=== PATIENT | male | born 1950 | race Caucasian/White ===

== ENCOUNTER 2019-04-25 11:13 | Emergency (ER) | payer MEDICARE, BC ==
[2019-04-25] MEDS ORDERED: Ibuprofen TAB* 600 MG PO ONE (12:36)
--- NOTE | 2019-04-25 12:36 | UC ---
Lower Extremity/Ankle HPI - HPI Summary HPI Summary: 68 yo male presents with RIGHT hip pain. He tells me that he was playing pickleball this morning and dove to hit the ball and landed on his right hip. Had immediate pain. Since that time has been unable to bear weight on right leg and has pain with movement. Denies numbness tingling. Took an ibuprofen prior to arrival. - History of Current Complaint Chief Complaint: UCLowerExtremity Stated Complaint: HIP INJURY Time Seen by Provider: 04/25/19 12:36 Hx Obtained From: Patient Onset/Duration: Sudden Onset Severity Initially: Severe Severity Currently: Severe Pain Intensity: 9 Pain Scale Used: 0-10 Numeric - Allergies/Home Medications Allergies/Adverse Reactions: Allergies Allergy/AdvReac Type Severity Reaction Status Date / Time No Known Allergies Allergy Verified 04/25/19 12:28 Home Medications: Home Medications Ibuprofen 400 mg PO ONCE PRN 04/25/19 [History Confirmed 04/25/19] PMH/Surg Hx/FS Hx/Imm Hx - Additional Past Medical History Additional PMH: None - Surgical History Surgical History: Yes Surgery Procedure, Year, and Place: prostatectomy. hernia repair - Family History Known Family History: Positive: Hypertension - Social History Lives: With Family Alcohol Use: None Substance Use Type: None Smoking Status (MU): Light Every Day Tobacco Smoker Amount Used/How Often: 5-10cig/day Household Exposure Type: Cigarettes Review of Systems All Other Systems Reviewed And Are Negative: No Constitutional: Positive: Negative Skin: Positive: Negative Respiratory: Positive: Negative Cardiovascular: Positive: Negative Gastrointestinal: Positive: Negative Genitourinary: Positive: Negative Neurovascular: Positive: Negative Musculoskeletal: Positive: Other: - Right hip pain Neurological: Positive: Negative Psychological: Positive: Negative Physical Exam - Summary Physical Exam Summary: GENERAL: NAD. WDWN. No pain distress seated in wheelchair SKIN: No rashes, sores, lesions, or open wounds. NECK: Supple. FROM. Nontender. No lymphadenopathy. CHEST: CTAB. No r/r/w. No accessory muscle use. Breathing comfortably and in no distress. CV: RRR. Pulses intact. Cap refill <2seconds MSK: RIGHT HIP: TTP over hip joint. Pain with any movement of right hip joint. NTTP right knee - flexes and extends. NEURO: Alert. Sensations intact B/L LEs L3-S1. Reflexes intact PSYCH: Age appropriate behavior. Triage Information Reviewed: Yes Vital Signs: Initial Vital Signs Temp 98.3 F 04/25/19 12:24 Pulse 85 04/25/19 12:24 Resp 18 04/25/19 12:24 BP 142/90 04/25/19 12:24 Pulse Ox 93 04/25/19 12:24 Vital Signs Reviewed: Yes Diagnostics - Radiology Hip XR Summary of Radiographic Findings: IMPRESSION: Suspected nondisplaced fracture of the right femoral neck. Lower Extremity Course/Dx - Course Course Of Treatment: XR as above. Discussed with Dr. Parker of Orthopedics and he recommends pt be transferred to the ED and he will see pt there. Pt was given norco for his discomfort in the clinic, but otherwise was kept NPO. CT obtained for Orthopedic eval. EMS called and pt left in stable condition via [facility]. Report called to Dr. Briceño in the ED. - Differential Dx/Diagnosis Provider Diagnosis: Fracture of femoral neck, right Discharge ED - Sign-Out/Discharge Documenting (check all that apply): Patient Departure All imaging exams completed and their final reports reviewed: Yes - Discharge Plan Condition: Stable Disposition: TRANS HIGHER LVL OF CARE FAC Referrals: No Primary Care Phys,NOPCP [Primary Care Provider] - - Billing Disposition and Condition Condition: STABLE Disposition: Trans Higher Lvl of Care Fac
[2019-04-25] MEDS ORDERED: HYDROcodone/ACETAMIN 5-325 MG* 1 TAB PO ONE (13:22)
[2019-04-25 13:54] VITALS: BP 113/68
== END 2019-04-25 14:15 | disposition short-term general hospital (02) ==
LOC: UCEAST 11:13
DX: S72.001A Fracture of unspecified part of neck of right femur, initial encounter for closed fracture (principal); F17.210 Nicotine dependence, cigarettes, uncomplicated; W18.30XA Fall on same level, unspecified, initial encounter; Y93.89 Activity, other specified; Y92.9 Unspecified place or not applicable
CPT/HCPCS: 72192; 99203; A9270-GY; G0463

== ENCOUNTER 2019-04-25 14:30 | Inpatient (IN) | payer MEDICARE, BC ==
[2019-04-25] MEDS ORDERED: Morphine 4 MG/ML VIAL (1 ml) 4 MG/ML VIAL IV ONE (14:45)
[2019-04-25 15:17] LABS: Hematocrit 49 % (42-52); Hemoglobin 16.5 g/dL (14.0-18.0); Mean Corpuscular HGB Conc 34 g/dL (31-36); Mean Corpuscular Hemoglobin 30 pg (27-31); Mean Corpuscular Volume 88 fL (80-94); Mean Platelet Volume 8.2 fL (7.4-10.4); Platelet Count 507 10^3/uL (150-450); Red Blood Count 5.55 10^6 /uL (4.18-5.48); Red Cell Distribution Width 16 % (10-15); White Blood Count 24.5 10^3/uL (3.5-10.8)
[2019-04-25 15:19] LABS: ABS Basophils 0.1 10^3/ul (0-0.2); ABS Eosinophils 0.3 10^3/ul (0-0.6); ABS Lymphocytes 0.7 10^3/ul (1.0-4.8); ABS Monocytes 1.3 10^3/ul (0-0.8); ABS Neutrophils 22.1 10^3/ul (1.5-7.7); Eosinophil % 1.2 %; Lymphocyte % 2.9 %; Nucleated Red Blood Cells % 0.1
[2019-04-25 15:24] LABS: INR 1.14 (0.82-1.09)
[2019-04-25 15:42] LABS: Albumin/Globulin Ratio 1.4 (1-3); Calcium 9.1 mg/dL (8.6-10.3); EGFR African American 71.5 (>60); EGFR Non-African American 59.1 (>60); Globulin 2.9 g/dL (2-4); Potassium 4.7 mmol/L (3.5-5.0); Total Bilirubin 0.5 mg/dL (0.2-1.0); Total Protein 6.9 g/dL (6.4-8.9)
--- NOTE | 2019-04-25 15:43 | HP ---
H&P (Free Text) History and Physical: Ortho H&P Attending Provider: Amadeo Keita Date of Consultation: 04/25/19 Date of Admission: 04/25/19 CC: Right femoral neck fracture History: Patient is a 60 year old male with no reported past medical history who present to the emergency room after falling onto his right hip while playing pickle ball this morning. He reports a mechanical fall without any associated chest pain, shortness of breath, dizziness. Pain of the right hip is severe and worsened with movement, better with rest. It is nonradiating. No other complaints of pain and did not strike his head or lose consciousness with the fall. After falling he was able to get to his feet but unable to bear weight. Last meal was at 1200 today, has had sips of water since. No known history of heart attack, stroke, DVT, PE, blood transfusion, HIV or hepatitis. No history of adverse effects with anesthesia. Allergies: NKDA Surgical History: prostatectomy, right partial 1st finger amputation, left wrist surgery Past medical history: none reported Family history: No family history of adverse effects with anesthesia, heart attack, stroke or blood clot. Social: Lives in [place]. 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 In [place] visiting his significant other. Smokes 5-10 cigarettes per day. Does not use alcohol or drugs. Walks without assistive device. Home Meds: No prescriptions, ibuprofen PRN Review of Systems: General: Negative for Fever, Chills, recent illness HEENT: Negative for acute change in vision, headache, head trauma. Cardio: No irregular heartbeats, Chest Pain or history of [place] Resp: No Shortness of Breath or Cough. Abd: no Abdominal Pain, Vomiting, Diarrhea, Nausea : no dysuria MSK: + Right hip pain. No pain of other joints and no pain of extremities aside from right hip Neuro: Sensation intact throughout all extremities without numbness or parasthesias Heme: no history of blood clot, easy bleeding or easy bruising Skin: No rash or lesions. Physical Exam: Vitals: Vital Signs Temp 98.7 F 04/25/19 14:33 Pulse 85 04/25/19 15:00 Resp 18 04/25/19 15:26 BP 144/95 04/25/19 14:33 Pulse Ox 91 04/25/19 15:00 Intake & Output 04/24/19 04/25/19 04/25/19 18:59 06:59 18:59 Weight 180 lb General: Well appearing, NAD, alert and oriented to person, place and time HEENT: NCAT. EOMi, moist mucus membranes Cardio: S1S2 RRR Resp: CTA BL. no wheezes, rales or rhonchi ABD: bowel sounds normoactive in all 4 quadrants. Nontender to palpation, no guarding or rigidity. MSK Upper Extremities: Skin envelope intact, no obvious deformity, nontender to palpation. Active flexion and extension of digits, wrists, elbows without associated pain. Shoulders with nonpainful active forward flexion and abduction. MSK Left Lower Extremity: Skin envelope intact, no obvious eddie deformity, nontender to palpation. Active nonpainful flexion and extension of digits, ankle , knee and hip. Negative log roll at the hip. MSK Right Lower Extremity: Skin envelope intact. Tender to palpation over the right hip only, no tenderness of knee, lower leg, ankle, foot or digits. Able to flex and extend toes and ankle without pain. ROM of hip and knee produces hip pain. Neuro: Sensation intact to light touch throughout bilateral upper and lower extremities Vascular: Radial pulse 2+ bilaterally, DP pulse 2+ bilaterally. Capillary refill less than two seconds distally bilateral upper and lower extremities Psych: Appropriate affect. Skin: No rash or lesions. No open fractures. Diagnostic Studies: PELVIS CT IMPRESSION: #. Mildly impacted subcapital RIGHT femoral neck fracture with mild apex anterior angulation. No predisposing underlying pathologic bone lesion evident at the fracture site. Associated moderate hemarthrosis. Laboratory Last Values WBC 24.5 10^3/uL (3.5-10.8) H 04/25/19 15:01 RBC 5.55 10^6 /uL (4.18-5.48) H 04/25/19 15:01 Hgb 16.5 g/dL (14.0-18.0) 04/25/19 15:01 Hct 49 % (42-52) 04/25/19 15:01 MCV 88 fL (80-94) 04/25/19 15:01 MCH 30 pg (27-31) 04/25/19 15:01 MCHC 34 g/dL (31-36) 04/25/19 15:01 RDW 16 % (10-15) H 04/25/19 15:01 Plt Count 507 10^3/uL (150-450) H 04/25/19 15:01 MPV 8.2 fL (7.4-10.4) 04/25/19 15:01 Neut % (Auto) 90.3 % 04/25/19 15:01 Lymph % (Auto) 2.9 % 04/25/19 15:01 [place] % (Auto) 5.1 % 04/25/19 15:01 Eos % (Auto) 1.2 % 04/25/19 15:01 Baso % (Auto) 0.5 % 04/25/19 15:01 Absolute Neuts (auto) 22.1 10^3/ul (1.5-7.7) H 04/25/19 15:01 Absolute Lymphs (auto) 0.7 10^3/ul (1.0-4.8) L 04/25/19 15:01 Absolute Monos (auto) 1.3 10^3/ul (0-0.8) H 04/25/19 15:01 Absolute Eos (auto) 0.3 10^3/ul (0-0.6) 04/25/19 15:01 Absolute Basos (auto) 0.1 10^3/ul (0-0.2) 04/25/19 15:01 Absolute Nucleated RBC 0.0 10^3/ul 04/25/19 15:01 Nucleated RBC % 0.1 04/25/19 15:01 INR (Anticoag Therapy) 1.14 (0.82-1.09) H 04/25/19 15:01 Sodium 137 mmol/L (135-145) 04/25/19 15:01 Potassium 4.7 mmol/L (3.5-5.0) 04/25/19 15:01 Chloride 110 mmol/L (101-111) 04/25/19 15:01 Carbon Dioxide 21 mmol/L (22-32) L 04/25/19 15:01 Anion Gap 6 mmol/L (2-11) 04/25/19 15:01 BUN 28 mg/dL (6-24) H 04/25/19 15:01 Creatinine 1.22 mg/dL (0.67-1.17) H 04/25/19 15:01 Est GFR ( Amer) 71.5 (>60) 04/25/19 15:01 Est GFR (Non-Af Amer) 59.1 (>60) 04/25/19 15:01 BUN/Creatinine Ratio 23.0 (8-20) H 04/25/19 15:01 Glucose 110 mg/dL (70-100) H 04/25/19 15:01 Calcium 9.1 mg/dL (8.6-10.3) 04/25/19 15:01 Total Bilirubin 0.50 mg/dL (0.2-1.0) 04/25/19 15:01 AST 20 U/L (13-39) 04/25/19 15:01 ALT 19 U/L (7-52) 04/25/19 15:01 Alkaline Phosphatase 69 U/L (34-104) 04/25/19 15:01 Total Protein 6.9 g/dL (6.4-8.9) 04/25/19 15:01 Albumin 4.0 g/dL (3.2-5.2) 04/25/19 15: Globulin 2.9 g/dL (2-4) 04/25/19 15:01 Albumin/Globulin Ratio 1.4 (1-3) 04/25/19 15:01 Assessment: Right femoral neck fracture Plan: Patient agrees to surgical fixation of R femoral neck fracture. Discussed with Dr Keita, total hip vs anastacia to be considered. NWB RLE, bedrest. Hospitalist consult for preop clearance. WBC elevated, possible stress reaction though need to r/o other causes- UA, CXR, EKG ordered. Patient can have a normal diet today. Heparin and SCDs for DVT prophy, heparin will be held at midnight. Should remain NPO at midnight. Needs a CBC, BMP, type and screen, INR prior to surgery.
[2019-04-25] MEDS ORDERED: Magnesium Hydroxide LIQ* 30 ML UDC PO PRN (16:00)
[2019-04-25] MEDS ORDERED: Ondansetron ODT TAB* 4 MG PO PRN (16:00)
[2019-04-25] MEDS ORDERED: diPHENhydraMINE PO* 25 MG PO PRN (16:00)
[2019-04-25] MEDS ORDERED: diPHENhydraMINE IV* 50 MG/ML 1 ml VIAL (BENADRYL) IV PRN (16:00)
[2019-04-25] MEDS ORDERED: Cyclobenzaprine TAB* 10 MG PO PRN (16:00)
[2019-04-25] MEDS ORDERED: Ondansetron INJ* 2 MG/ML VIAL IV PRN (16:00)
[2019-04-25] MEDS ORDERED: Morphine INJ* 2 MG/ML 1 ML SYRINGE (TWO MG - NEW SYRINGE VERSION) IV PRN (16:00)
[2019-04-25] MEDS ORDERED: traMADol TAB* 50 MG PO PRN (16:00)
[2019-04-25] MEDS ORDERED: Nicotine PATCH 7 MG/24 HR* PATCH TRANSDERM PRN (16:07)
[2019-04-25 16:18] LABS: C Reactive Protein 7.1 mg/L (<8.01)
[2019-04-25 16:26] LABS: Activated Partial Thrombo Time 39.3 seconds (26.0-38.0)
--- NOTE | 2019-04-25 16:26 | ED ---
Lower Extremity - HPI Summary HPI Summary: This patient is a 68-year-old male who presents to the ED after a fall with right-sided hip pain. Patient states he was playing pickleball at the [facility] when he tripped and fell onto the L hip. Pt went to and xrays were obtainee which is positive for a mildly impacted subcapital right femoral neck fracture with mild apex anterior angulation. Prior to arrival to the ED, the provider at urgent care was able to contact orthopedics, Dr. Aranda to make aware of patient. Patient was given 2 hydrocodone prior to arrival. On arrival into the ED, patient continues to complain of 6/10 pain. Denies any other injuries, denies hitting his head or the use of anticoagulation medications. - History of Current Complaint Chief Complaint: EDExtremityLower Stated Complaint: LEFT HIP FX FROM CC Time Seen by Provider: 04/25/19 14:31 Hx Obtained From: Patient Onset of Pain: Hours Onset/Duration: Days Severity Initially: Moderate Severity Currently: Moderate Pain Intensity: 7 Pain Scale Used: 0-10 Numeric Timing: Constant Location: Is Discrete @ - right hip pain Character Of Pain: Aching Associated Signs And Symptoms: Negative: Swelling, Redness, Bruising Aggravating Factor(s): Standing, Ambulation Alleviating Factor(s): Rest Able to Bear Weight: No - Risk Factors Gout Risk Factors: Negative DVT Risk Factors: Negative Septic Arthritis Risk Factor: Negative - Allergies/Home Medications Allergies/Adverse Reactions: Allergies Allergy/AdvReac Type Severity Reaction Status Date / Time No Known Allergies Allergy Verified 04/25/19 12:28 PMH/Surg Hx/FS Hx/Imm Hx Previously Healthy: Yes - Cancer History Cancer Type, Location and Year: prostate ca - Surgical History Surgery Procedure, Year, and Place: prostatectomy. hernia repair - Immunization History Hx Pertussis Vaccination: No Immunizations Up to Date: Yes Infectious Disease History: No Infectious Disease History: Denies: Traveled Outside the [place] in Last 30 Days - Family History Known Family History: Positive: Hypertension - Social History Occupation: Employed Full-time Lives: With Family Alcohol Use: None Hx Substance Use: No Substance Use Type: Reports: None Hx Tobacco Use: Yes Smoking Status (MU): Light Every Day Tobacco Smoker Amount Used/How Often: 5-10cig/day Review of Systems Negative: Fever, Chills, Fatigue, Skin Diaphoresis Negative: Palpitations, Chest Pain Negative: Shortness Of Breath, Cough Genitourinary: Negative Positive: no symptoms reported, see HPI Positive: Arthralgia - right hip pain Skin: Negative Neurological: Negative All Other Systems Reviewed And Are Negative: Yes Physical Exam Triage Information Reviewed: Yes Vital Signs On Initial Exam: Initial Vitals Temp Pulse Resp BP Pulse Ox 98.7 F 81 19 144/95 93 04/25/19 14:33 04/25/19 14:33 04/25/19 14:33 04/25/19 14:33 04/25/19 14:33 Vital Signs Reviewed: Yes Appearance: Positive: Well-Appearing, Well-Nourished Skin: Positive: Warm, Skin Color Reflects Adequate Perfusion Head/Face: Positive: Normal Head/Face Inspection Eyes: Positive: EOMI, EL, Conjunctiva Clear Neck: Positive: Supple, No Lymphadenopathy Respiratory/Lung Sounds: Positive: Clear to Auscultation, Breath Sounds Present Cardiovascular: Positive: RRR, Pulses are Symmetrical in both Upper and Lower Extremities Musculoskeletal: Positive: Pain @ - right hip pain - unable to fully extend leg Neurological: Positive: Speech Normal Psychiatric: Positive: Affect/Mood Appropriate Procedures - Sedation Patient Received Moderate/Deep Sedation with Procedure: No Diagnostics - Vital Signs Vital Signs Temp Pulse Resp BP Pulse Ox 04/25/19 16:05 86 130/82 90 04/25/19 16:00 82 91 04/25/19 15:35 82 126/81 90 04/25/19 15:26 18 04/25/19 15:00 85 91 04/25/19 14:40 72 93 04/25/19 14:33 98.7 F 81 19 144/95 93 - Laboratory Lab Results: Lab Results 04/25/19 04/25/19 04/25/19 Range/Units 15:01 15:01 15:01 WBC 24.5 H (3.5-10.8) 10^3/uL RBC 5.55 H (4.18-5.48) 10^6 /uL Hgb 16.5 (14.0-18.0) g/dL Hct 49 (42-52) % MCV 88 (80-94) fL MCH 30 (27-31) pg MCHC 34 (31-36) g/dL RDW 16 H (10-15) % Plt Count 507 H (150-450) 10^3/uL MPV 8.2 (7.4-10.4) fL Neut % (Auto) 90.3 % Lymph % (Auto) 2.9 % [place] % (Auto) 5.1 % Eos % (Auto) 1.2 % Baso % (Auto) 0.5 % Absolute Neuts (auto) 22.1 H (1.5-7.7) 10^3/ul Absolute Lymphs (auto) 0.7 L (1.0-4.8) 10^3/ul Absolute Monos (auto) 1.3 H (0-0.8) 10^3/ul Absolute Eos (auto) 0.3 (0-0.6) 10^3/ul Absolute Basos (auto) 0.1 (0-0.2) 10^3/ul Absolute Nucleated RBC 0.0 10^3/ul Nucleated RBC % 0.1 INR (Anticoag Therapy) 1.14 H (0.82-1.09) APTT Pending Sodium 137 (135-145) mmol/L Potassium 4.7 (3.5-5.0) mmol/L Chloride 110 (101-111) mmol/L Carbon Dioxide 21 L (22-32) mmol/L Anion Gap 6 (2-11) mmol/L BUN 28 H (6-24) mg/dL Creatinine 1.22 H (0.67-1.17) mg/dL Est GFR ( Amer) 71.5 (>60) Est GFR (Non-Af Amer) 59.1 (>60) BUN/Creatinine Ratio 23.0 H (8-20) Glucose 110 H (70-100) mg/dL Calcium 9.1 (8.6-10.3) mg/dL Total Bilirubin 0.50 (0.2-1.0) mg/dL AST 20 (13-39) U/L ALT 19 (7-52) U/L Alkaline Phosphatase 69 (34-104) U/L C-Reactive Protein 7.10 (<8.01) mg/L Total Protein 6.9 (6.4-8.9) g/dL Albumin 4.0 (3.2-5.2) g/dL Globulin 2.9 (2-4) g/dL Albumin/Globulin Ratio 1.4 (1-3) Result Diagrams: 04/25/19 15:01 04/25/19 15:01 Lab Statement: Any lab studies that have been ordered have been reviewed, and results considered in the medical decision making process. Lower Extremity Course/Dx - Course Course Of Treatment: This patient is an otherwise healthy 68-year-old male presenting to the ED with right hip pain. Mild impacted subcapital right femoral neck fracture. Discussed case with Dr. Aranda who will admit to service. BETHANY Castellano to see patient in the ED. Patient was given morphine on arrival into the ED. Patient appears well, VS stable. - Diagnoses Provider Diagnoses: Subcapital fracture of right hip - Physician Notifications Discussed Care Of Patient With: Amadeo Keita Instructed by Provider To: Admit As Inpatient Discharge ED - Sign-Out/Discharge Documenting (check all that apply): Patient Departure All imaging exams completed and their final reports reviewed: Yes - Discharge Plan Condition: Good Disposition: ADMITTED TO [facility] - Billing Disposition and Condition Condition: GOOD Disposition: Admitted to [facility] - Attestation Statements Provider Attestation: I was available for consult. This patient was seen by the JUDY. The patient was not presented to, seen by, or examined by me. -Tony
[2019-04-25] MEDS: Heparin VIAL(*) 5000 UNITS/ML VIAL (FIVE THOUSAND) SUBCUT SCH ×2 (17:33→21:46)
[2019-04-25] MEDS: oxyCODONE TAB* 5 MG TAB PO PRN ×2 (17:34→21:55)
[2019-04-25] MEDS: NS 0.9% 1000 ML** 1,000 ML IV SCH (17:34)
--- NOTE | 2019-04-25 19:30 | CONS ---
CC: Dr. Chapa * CONSULTATION REPORT: DATE OF ADMISSION: 04/25/19 DATE OF CONSULT: 04/25/19 PRIMARY CARE PROVIDER: None. CONSULT REQUESTING PHYSICIAN: Dr. Chapa from orthopedic surgery. REASON FOR CONSULT: Leukocytosis in a patient with right hip fracture. CHIEF COMPLAINT: Right hip pain. HISTORY OF PRESENT ILLNESS: Mike Lei is a 68-year-old male with history of prostate cancer, status post radical prostatectomy over 15 years ago. He has had no medical problems and takes no medications. He was playing ball at the [employer] and fell down while doing so. He hit on his right pelvis and he suffered from a right femoral neck fracture. When evaluated in the ED, he was noted to have marked leukocytosis with WBC of 24,000 and creatinine of 1.22. His BUN was also slightly elevated. A consultation was requested from the orthopedic service in regards to medical management of the patient's noted abnormalities. PAST MEDICAL HISTORY: 1. History of prostate cancer, status post radical prostatectomy 15 years ago without any residual problems. 2. History of right index finger distal part traumatic amputation after working with a table saw. 3. Left wrist ORIF after wrist fracture several years ago. MEDICATIONS AT HOME: Ibuprofen on a p.r.n. basis. ALLERGIES: No known drug allergies. FAMILY HISTORY: Positive for mother who is alive and well at the age of 95 and his father who at the age of 86 with complications of osteoporosis and vertebral compression fractures. SOCIAL HISTORY: The patient has history of known drinking alcohol and occasional marijuana use. He smokes 5 cigarettes a day and he has been doing so for over 50 years. He is visiting his girlfriend in [place]. He is originally from [place]. He drove here from [place] approximately 7 days ago. He named his girlfriend, Nery Klein, as his person of contact and likely surrogate. REVIEW OF SYSTEMS: Positive for right hip pain. The patient denies any shortness of breath, chest pain, problems with urination or problems with bowel movements, or abdominal pain. All the remaining 12 systems were reviewed with the patient and were, otherwise , negative. PHYSICAL EXAM: Blood pressure of 145/76, heart rate of 86 and regular, respiratory rate 18, oxygen saturation 98% on room air, temperature of 98.6. General: The patient is a very pleasant 68-year-old male who is in no acute distress. Alert and oriented x2. HEENT: Head: Atraumatic, normocephalic. Eyes: Pupils are equal and reactive to light and accommodation. Oropharynx is clear. Mucosa moist. Neck: Supple. No JVD. No bruits bilaterally. Cardiovascular: Regular rate and rhythm. No murmur. Respiratory: Clear to auscultation bilaterally. Abdomen: Soft, nontender. Bowel sounds are present in all 4 quadrants. Extremities: There is no edema. Pulses are 2+ bilaterally. There is no clubbing or cyanosis. Neuro Evaluation: Speech clear. Cranial nerves II through XII are grossly intact. Motor strength is 5/5 bilaterally. On evaluation of the skin, no ecchymotic areas or rashes noted. DIAGNOSTIC STUDIES/LAB DATA: Laboratory Data: Sodium of 137, potassium 4.7, chloride 110, carbon dioxide 21, BUN 28, creatinine 1.22. Liver function tests were unremarkable. C-reactive protein of 7.1. CBC: White blood cell count of 24.5, hemoglobin of 16.5, hematocrit of 49, and platelets of 507. INR slightly elevated at 1.14. Portable chest x-ray, impression: "No active cardiopulmonary disease." The patient's EKG showed J point elevation in V2 and V3, likely normal variant. The patient's heart rate was 82 beats per minute with no other ST changes. There were no old EKGs available for comparison. The patient had a pelvis CT obtained at the [facility] today. Impression: "Mildly impacted subcapital right femoral neck fracture with mild apex anterior angulation. No predisposing underlying pathologic bone lesion evident at the fracture site. Associated moderate hemarthrosis." ASSESSMENT AND PLAN: 1. Right femoral neck fracture. As per orthopedic surgery, the patient will go to the OR either tomorrow or the day after. The patient has very good exercise tolerance and no evidence of chronic conditions. His RCRI risk is 0 points and he is an acceptable candidate for the anticipated surgery and no other steps are required for optimization. 2. Leukocytosis. This is likely reactive. The patient's C-reactive protein is within normal limits and there is no evidence of infection. At this point, we will observe and recheck the patient's tests and lab work in the morning. 3. Mild elevation in creatinine, likely due to mild dehydration. The patient had been n.p.o. ever since his fall and fracture. Gentle hydration is recommended, which was already started by the orthopedic service. 4. For DVT prophylaxis, the patient was started on heparin subcutaneous as per orthopedic service. 5. The patient's code status is full. His surrogate is his girlfriend. TIME SPENT: Approximately 55 minutes were spent on the admission of this patient. More than half that time was spent [id number] with the patient during the interview and physical exam. [id number]/[facility] #: [id number] [place]
[2019-04-25] MEDS: Acetaminophen TAB* 325 MG PO SCH (21:41)
[2019-04-25] MEDS: Magnesium Hydroxide LIQ* 30 ML UDC PO SCH (21:41)
[2019-04-25] MEDS: Docusate CAP* 100 MG PO SCH (21:41)
[2019-04-25] MEDS: Nicotine Patch Removal NOTE PATCH OFF SCH (21:42)
[2019-04-26] MEDS: NS 0.9% 1000 ML** 1,000 ML IV SCH (02:17)
[2019-04-26] MEDS: Acetaminophen TAB* 325 MG PO SCH ×3 (05:38→21:53)
[2019-04-26 06:26] LABS: ABS Basophils 0.2 10^3/ul (0-0.2); ABS Eosinophils 0.3 10^3/ul (0-0.6); ABS Monocytes 1.2 10^3/ul (0-0.8); ABS Neutrophils 13.4 10^3/ul (1.5-7.7); Hematocrit 47 % (42-52); Hemoglobin 15.8 g/dL (14.0-18.0); Lymphocyte % 6.4 %; Mean Corpuscular HGB Conc 34 g/dL (31-36); Mean Corpuscular Hemoglobin 30 pg (27-31); Mean Corpuscular Volume 88 fL (80-94); Mean Platelet Volume 8.4 fL (7.4-10.4); Nucleated Red Blood Cells % 0.1; Platelet Count 468 10^3/uL (150-450); Red Blood Count 5.33 10^6 /uL (4.18-5.48); Red Cell Distribution Width 15 % (10-15); White Blood Count 16.2 10^3/uL (3.5-10.8)
[2019-04-26 06:34] LABS: INR 1.11 (0.82-1.09)
[2019-04-26 06:43] LABS: BUN/Creatinine Ratio 20.8 (8-20); Calcium 8.5 mg/dL (8.6-10.3); EGFR African American 72.9 (>60); EGFR Non-African American 60.2 (>60); Potassium 4.4 mmol/L (3.5-5.0)
--- NOTE | 2019-04-26 06:48 | PN ---
Progress Note - Progress Note Date of Service: 04/26/19 Note: CC: Right hip pain HPI: Please see orthopedic H&P by Kaylyn Stewart for full history and physical exam details. This is a 68-year-old man who sustained a mechanical fall onto his right hip while playing pickle ball yesterday. He had immediate pain in the right hip area. No pain anywhere else and denies any other injuries with this fall. Denies head strike or LOC. He does report some right hip pain at baseline, especially with car rides. He is very active at baseline and does not use any assistive devices for ambulation. Pain is at the right hip and is constant, moderate, sharp. Worse with range of motion. Improved with rest. Past medical history: Denies Medications: Denies No known drug allergies. Past surgical history: of prostatectomy, right partial finger amputation, left wrist surgery Social history: He lives in [place] but is visiting his significant other who lives locally. He smokes 5-10 cigarettes per day. No alcohol or drugs. Walks without any sort of ambulatory devices at baseline. Family history: Denies any history of problems with anesthesia or thrombophilias Review of Systems: Negative for fever, recent visual changes, difficulty swallowing, chest pain, shortness of breath, abdominal pain, hematuria, easy bruising, diffuse weakness or lack of coordination, and diffuse rash. Physical Examination: Constitutional: Temp Pulse Resp BP Pulse Ox 98.0 F 76 17 102/67 93 04/26/19 04:14 04/26/19 04:14 04/26/19 04:14 04/26/19 04:14 04/26/19 04:14 General appearance is healthy and non-septic in no acute distress. Cardiovascular: Pulse examination demonstrates positive pedal pulses with brisk capillary refill. There are no varicosities. Abdomen: Soft and nontender Lymphatic: No lymphadenopathy appreciated. Skin: Bilateral upper and lower extremity examination demonstrates no ulcerative lesions. Psychiatric / Neurological: Appropriate affect. Alert and oriented to person, place and time. There is no significant abnormality in coordination appreciated. Normoreflexive deep tendon reflex of the affected extremity. Musculoskeletal: Bilateral upper extremities and contralateral lower extremity show full range of motion with no evidence of instability and no tenderness with palpation and 5 /5 strength. There is no gross deformity. RLE: Held externally rotated Skin intact 5/5 motor strength distally with intact sensation to light touch There is no global swelling, edema, or varicosities. Pain with logroll and heel strike No TTP at knee, lower leg, ankle, foot Palpable DP pulse. Flexes and extends ankle and toes. Imaging: X-rays were obtained, and independently interpreted and show a right femoral neck fracture. I also reviewed his CT scan which shows displacement of the femoral neck fracture as well as underlying hip osteoarthritis. Labs: WBC 24.5 HCT 49 Platelets 507 Cr 1.22 INR 1.14 Impression and Plan: 68-year-old man status post mechanical fall with displaced right femoral neck fracture. We discussed both nonoperative and operative treatment options. My recommendation is surgical intervention when medically cleared with a right total hip replacement. I explained that given the displacement and underlying hip osteoarthritis, yet with his high baseline level of activity, I do think a total hip replacement is his best option. We did review surgical fixation and hemiarthroplasty as well and why I think they are less good options. We discussed the risks/benefits and pros/cons of all of these options. After this discussion, we came to the decision that we would move forward with surgery. I' ve spoken my colleague, Dr. Chapa, who can perform the total hip replacement tomorrow, 04/27/19. For now, nonweightbearing in the right lower extremity. NPO after MN. Appreciate medical clearance and any required workup of his laboratory abnormalities. Chemical and mechanical DVT prophylaxis. Amadeo Keita MD
[2019-04-26] MEDS: oxyCODONE TAB* 5 MG TAB PO PRN ×4 (07:35→20:15)
[2019-04-26] MEDS: Docusate CAP* 100 MG PO SCH ×2 (08:56→21:54)
[2019-04-26] MEDS: Vitamin THERAPEUTIC TAB PO SCH (08:56)
[2019-04-26] MEDS: Magnesium Hydroxide LIQ* 30 ML UDC PO SCH ×2 (08:57→21:54)
[2019-04-26] MEDS ORDERED: Pneumococcal *Vac Polyvalent 0.5 ML VIAL IM ONE (09:00)
[2019-04-26] MEDS ORDERED: Influenza VAC *QUAD* 2019-20* 0.5 ML SYRINGE IM ONE (09:00)
--- NOTE | 2019-04-26 09:11 | CONS ---
ORTHOPEDIC CONSULTATION NOTE: DATE OF CONSULT: 04/26/19 - ROOM #[id number] CHIEF COMPLAINT: Right hip pain. HISTORY OF PRESENT ILLNESS: Mr. Lei is a 68-year-old gentleman who had a fall yesterday on 04/25/19 injuring his right hip. He was brought to [facility] and found to have a displaced femoral neck fracture. My partner , Dr. Amadeo Keita, did ask me to see this patient in consultation and discuss total hip arthroplasty. The patient reports the pain is tolerable today. He has discussed these options and would like to proceed with right total hip arthroplasty. PAST MEDICAL HISTORY: Prostate cancer, wrist fracture. PAST SURGICAL HISTORY: Prostatectomy, left wrist ORIF, right partial first finger amputation. HOME MEDICATIONS: None. ALLERGIES: No known drug allergies. SOCIAL HISTORY: The patient lives in [place]. He is retired. 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 His girlfriend lives in [place]. He smokes less than half pack cigarettes per day. No alcohol or recreational drugs. Normally he ambulates independently and is quite active. REVIEW OF SYSTEMS: Positive for the right hip pain, recent fall. Negative for fevers, chills, chest pain, shortness of breath. Otherwise, the patient reports review of systems is negative or not relevant. PHYSICAL EXAMINATION: Vitals: Temperature 98, pulse 76, blood pressure 102/ 67. General: The patient is a well-nourished male, in no apparent distress, alert and oriented x3, pleasant mood and appropriate affect. Gait is not assessed. Right lower extremity, the patient's skin is intact. No abrasions or open wounds distally. Neurovascularly intact with dorsiflexion and plantarflexion. 2+ palpable deep pulse, tenderness around the proximal hip, leg , and tenderness along the proximal thigh laterally at the greater trochanter. DIAGNOSTIC STUDIES/LAB DATA: White blood cells 16.2, hematocrit 47, platelets 468. INR 1.11. Sodium 139, potassium 4.4, chloride 112, BUN and creatinine 25 and 1.2. RADIOGRAPHS: Plain films and CT of the right hip show a displaced comminuted femoral neck fracture. There is some baseline arthritis in the hip joint. ASSESSMENT AND PLAN: Mr. Lei is a 68-year-old gentleman status post fall with a displaced right femoral neck fracture. Today, my partner asked me to consult on this patient and treat him if chooses to proceed with right total hip arthroplasty. Today, the patient and I discussed the risks and benefits of those nonoperative and operative fixation of the fracture. He would like to proceed with surgery. We discussed open reduction and internal fixation versus hemiarthroplasty versus total hip arthroplasty. He would like to proceed with total hip arthroplasty. We discussed the risks and benefits of surgery. He understands the risks of surgery include, but are not limited to bleeding, infection, damage to nearby structures, need for further surgery, intraoperative fracture, nerve palsy, hardware failure or loosening, dislocation, leg length discrepancy, stroke, heart attack, blood clot, and . He wishes to proceed. We will tentatively schedule him for 04/27/19 right total hip arthroplasty. The patient will be placed on the OR schedule for the first available operating room. The patient will be on bed rest and p.r.n. analgesia. Thank you for this orthopedic consultation. [id number]/[facility] #: [id number] [place]
[2019-04-26 09:44] LABS: EGFR African American 74.3 (>60); EGFR Non-African American 61.4 (>60)
--- NOTE | 2019-04-26 11:52 | PN ---
Subjective Date of Service: 04/26/19 Interval History: Pt c/o r hip pain. will have surgery tomorrow Objective Active Medications: Acetaminophen (Tylenol Tab*) 975 mg PO Q8HR [facility] Last Admin: 04/26/19 05:38 Dose: Not Given Bisacodyl (Dulcolax Supp*) 10 mg OR DAILY PRN PRN Reason: CONSTIPATION Cyclobenzaprine HCl (Flexeril Tab*) 10 mg PO Q6H PRN PRN Reason: SPASMS Diphenhydramine HCl (Benadryl Iv*) 25 mg IV Q6H PRN PRN Reason: PRURITIS Diphenhydramine HCl (Benadryl Po*) 25 mg PO Q6H PRN PRN Reason: PRURITIS Docusate Sodium (Colace Cap*) 100 mg PO BID [facility] Last Admin: 04/26/19 08:56 Dose: 100 mg Heparin Sodium (Porcine) (Heparin Vial(*)) 5,000 units SUBCUT Q8HR [facility] Stop: 04/26/19 23:59 Sodium Chloride (Ns 0.9% 1000 Ml) 1,000 mls @ 125 mls/hr IV PER RATE [facility] Last Admin: 04/26/19 02:17 Dose: 125 mls/hr Lactulose (Lactulose*) 30 ml PO BID PRN PRN Reason: CONSTIPATION Magnesium Hydroxide (Milk Of Magnesia Liq*) 30 ml PO BID [facility] Last Admin: 04/26/19 08:57 Dose: 30 ml Magnesium Hydroxide (Milk Of Magnesia Liq*) 30 ml PO Q6H PRN PRN Reason: CONSTIPATION Morphine Sulfate (Morphine Inj (Syringe))*) 2 mg IV Q4H PRN PRN Reason: Pain - Unrelieved Multivitamins (Theragran Tab*) 1 tab PO DAILY [facility] Last Admin: 04/26/19 08:56 Dose: 1 tab Nicotine (Nicotine Patch 7 Mg/24 Hr*) 1 patch TRANSDERM DAILY PRN PRN Reason: CRAVINGS Ondansetron HCl (Zofran Inj*) 4 mg IV Q6H PRN PRN Reason: NAUSEA Ondansetron HCl (Zofran Odt Tab*) 4 mg PO Q6H PRN PRN Reason: NAUSEA Oxycodone HCl (Roxycodone Tab*) 5 mg PO Q4H PRN PRN Reason: Pain - Breakthrough Last Admin: 04/26/19 07:35 Dose: 5 mg Pharmacy Profile Note (Nicotine Patch Removal Note*) 1 note PATCH OFF 2100 [facility]OM Last Admin: 04/25/19 21:42 Dose: Not Given Tramadol HCl (Ultram*) 50 mg PO Q6H PRN PRN Reason: PAIN - MODERATE Vital Signs - 8 hr 04/26/19 04/26/19 04/26/19 04:14 07:35 07:46 Temperature 98.0 F 99.1 F Pulse Rate 76 73 Respiratory 17 18 16 Rate Blood Pressure 102/67 120/66 (mmHg) O2 Sat by Pulse 93 92 Oximetry 04/26/19 04/26/19 08:00 10:12 Temperature 97.9 F Pulse Rate 66 Respiratory 14 18 Rate Blood Pressure 126/74 (mmHg) O2 Sat by Pulse 95 Oximetry Oxygen Devices in Use Now: None Appearance: 68 yo M in nAD, AAOx3 Eyes: No Scleral Icterus, PERRLA Ears/Nose/Mouth/Throat: NL Teeth, Lips, Gums, Mucous Membranes Moist Neck: NL Appearance and Movements; NL JVP, Trachea Midline Respiratory: Symmetrical Chest Expansion and Respiratory Effort, Clear to Auscultation Cardiovascular: NL Sounds; No Murmurs; No JVD, RRR Abdominal: NL Sounds; No Tenderness; No Distention Lymphatic: No Cervical Adenopathy Extremities: No Edema, No Clubbing, Cyanosis Skin: No Rash or Ulcers, No Nodules or Sclerosis Neurological: Alert and Oriented x 3, NL Muscle Strength and Tone Result Diagrams: 04/26/19 06:07 04/26/19 09:17 Additional Lab and Data: Lab Results 04/25/19 04/25/19 04/25/19 Range/Units 15:01 15:01 15:01 WBC 24.5 H (3.5-10.8) 10^3/uL RBC 5.55 H (4.18-5.48) 10^6 /uL Hgb 16.5 (14.0-18.0) g/dL Hct 49 (42-52) % MCV 88 (80-94) fL MCH 30 (27-31) pg MCHC 34 (31-36) g/dL RDW 16 H (10-15) % Plt Count 507 H (150-450) 10^3/uL MPV 8.2 (7.4-10.4) fL Neut % (Auto) 90.3 % Lymph % (Auto) 2.9 % [place] % (Auto) 5.1 % Eos % (Auto) 1.2 % Baso % (Auto) 0.5 % Absolute Neuts (auto) 22.1 H (1.5-7.7) 10^3/ul Absolute Lymphs (auto) 0.7 L (1.0-4.8) 10^3/ul Absolute Monos (auto) 1.3 H (0-0.8) 10^3/ul Absolute Eos (auto) 0.3 (0-0.6) 10^3/ul Absolute Basos (auto) 0.1 (0-0.2) 10^3/ul Absolute Nucleated RBC 0.0 10^3/ul Nucleated RBC % 0.1 INR (Anticoag Therapy) 1.14 H (0.82-1.09) APTT Pending Sodium 137 (135-145) mmol/L Potassium 4.7 (3.5-5.0) mmol/L Chloride 110 (101-111) mmol/L Carbon Dioxide 21 L (22-32) mmol/L Anion Gap 6 (2-11) mmol/L BUN 28 H (6-24) mg/dL Creatinine 1.22 H (0.67-1.17) mg/dL Est GFR ( Amer) 71.5 (>60) Est GFR (Non-Af Amer) 59.1 (>60) BUN/Creatinine Ratio 23.0 H (8-20) Glucose 110 H (70-100) mg/dL Calcium 9.1 (8.6-10.3) mg/dL Total Bilirubin 0.50 (0.2-1.0) mg/dL AST 20 (13-39) U/L ALT 19 (7-52) U/L Alkaline Phosphatase 69 (34-104) U/L C-Reactive Protein 7.10 (<8.01) mg/L Total Protein 6.9 (6.4-8.9) g/dL Albumin 4.0 (3.2-5.2) g/dL Globulin 2.9 (2-4) g/dL Albumin/Globulin Ratio 1.4 (1-3) Assess/Plan/Problems-Billing Assessment: 68 yo M with h/o prostate cancer s/p traumatic R hip fx - Patient Problems (1) Closed right hip fracture Comment: for hip replacement tomorrow. Clearance documented in consult (2) Leukocytosis Comment: likely related to stress response, improved (3) Elevated serum creatinine Comment: suspect pt's baseline creat is 1.2 (4) DVT prophylaxis Comment: HSQ Status and Disposition: medicine consult, will follow
[2019-04-26] MEDS: Heparin VIAL(*) 5000 UNITS/ML VIAL (FIVE THOUSAND) SUBCUT SCH ×2 (14:13→21:54)
[2019-04-26] MEDS: Nicotine Patch Removal NOTE PATCH OFF SCH (21:26)
[2019-04-27] MEDS: oxyCODONE TAB* 5 MG TAB PO PRN ×4 (00:26→13:19)
[2019-04-27] MEDS: Acetaminophen TAB* 325 MG PO SCH ×3 (05:15→21:38)
[2019-04-27 06:15] LABS: INR 1.09 (0.82-1.09)
[2019-04-27 06:16] LABS: ABS Basophils 0.1 10^3/ul (0-0.2); ABS Eosinophils 0.4 10^3/ul (0-0.6); ABS Monocytes 1.3 10^3/ul (0-0.8); Eosinophil % 2.5 %; Hematocrit 46 % (42-52); Hemoglobin 15.9 g/dL (14.0-18.0); Lymphocyte % 6.1 %; Mean Corpuscular HGB Conc 34 g/dL (31-36); Mean Corpuscular Hemoglobin 30 pg (27-31); Mean Corpuscular Volume 88 fL (80-94); Mean Platelet Volume 8.6 fL (7.4-10.4); Platelet Count 435 10^3/uL (150-450); Red Blood Count 5.26 10^6 /uL (4.18-5.48); Red Cell Distribution Width 15 % (10-15); White Blood Count 15.8 10^3/uL (3.5-10.8)
[2019-04-27 06:27] LABS: BUN/Creatinine Ratio 22.8 (8-20); Calcium 8.4 mg/dL (8.6-10.3); EGFR African American 77.3 (>60); EGFR Non-African American 63.9 (>60); Potassium 4.4 mmol/L (3.5-5.0)
[2019-04-27] MEDS ORDERED: Lactated Ringers 1000 ML Bag* 1,000 ML IV SCH ×2 (08:00→14:00)
[2019-04-27] MEDS: Docusate CAP* 100 MG PO SCH ×2 (08:13→21:38)
[2019-04-27] MEDS: Magnesium Hydroxide LIQ* 30 ML UDC PO SCH ×2 (08:13→21:38)
[2019-04-27] MEDS: Vitamin THERAPEUTIC TAB PO SCH (08:13)
--- NOTE | 2019-04-27 09:31 | PN ---
Subjective Date of Service: 04/27/19 Interval History: Pt is waiting surgery today. still c/o r hip pain Objective Active Medications: Acetaminophen (Tylenol Tab*) 975 mg PO Q8HR [facility] Last Admin: 04/27/19 05:15 Dose: 975 mg Bisacodyl (Dulcolax Supp*) 10 mg SD DAILY PRN PRN Reason: CONSTIPATION Cyclobenzaprine HCl (Flexeril Tab*) 10 mg PO Q6H PRN PRN Reason: SPASMS Diphenhydramine HCl (Benadryl Iv*) 25 mg IV Q6H PRN PRN Reason: PRURITIS Diphenhydramine HCl (Benadryl Po*) 25 mg PO Q6H PRN PRN Reason: PRURITIS Docusate Sodium (Colace Cap*) 100 mg PO BID [facility] Last Admin: 04/27/19 08:13 Dose: 100 mg Lactulose (Lactulose*) 30 ml PO BID PRN PRN Reason: CONSTIPATION Magnesium Hydroxide (Milk Of Magnesia Liq*) 30 ml PO BID [facility] Last Admin: 04/27/19 08:13 Dose: 30 ml Magnesium Hydroxide (Milk Of Magnesia Liq*) 30 ml PO Q6H PRN PRN Reason: CONSTIPATION Morphine Sulfate (Morphine Inj (Syringe))*) 2 mg IV Q4H PRN PRN Reason: Pain - Unrelieved Multivitamins (Theragran Tab*) 1 tab PO DAILY [facility] Last Admin: 04/27/19 08:13 Dose: 1 tab Nicotine (Nicotine Patch 7 Mg/24 Hr*) 1 patch TRANSDERM DAILY PRN PRN Reason: CRAVINGS Ondansetron HCl (Zofran Inj*) 4 mg IV Q6H PRN PRN Reason: NAUSEA Ondansetron HCl (Zofran Odt Tab*) 4 mg PO Q6H PRN PRN Reason: NAUSEA Oxycodone HCl (Roxycodone Tab*) 5 mg PO Q4H PRN PRN Reason: Pain - Breakthrough Last Admin: 04/27/19 09:08 Dose: 5 mg Pharmacy Profile Note (Nicotine Patch Removal Note*) 1 note PATCH OFF 2100 [facility] Last Admin: 04/26/19 21:26 Dose: Not Given Tramadol HCl (Ultram*) 50 mg PO Q6H PRN PRN Reason: PAIN - MODERATE Vital Signs - 8 hr 04/27/19 04/27/19 04/27/19 02:25 03:19 05:16 Temperature 97.9 F Pulse Rate 73 Respiratory 16 16 16 Rate Blood Pressure 114/67 (mmHg) O2 Sat by Pulse 94 Oximetry 04/27/19 04/27/19 04/27/19 07:20 08:00 09:08 Temperature Pulse Rate Respiratory 18 18 18 Rate Blood Pressure (mmHg) O2 Sat by Pulse Oximetry Oxygen Devices in Use Now: Nasal Cannula Appearance: 68 yo M in nAD, aAOx3 Eyes: No Scleral Icterus, PERRLA Ears/Nose/Mouth/Throat: NL Teeth, Lips, Gums, Mucous Membranes Moist Neck: NL Appearance and Movements; NL JVP, Trachea Midline Respiratory: Symmetrical Chest Expansion and Respiratory Effort, Clear to Auscultation Cardiovascular: NL Sounds; No Murmurs; No JVD, RRR Abdominal: NL Sounds; No Tenderness; No Distention Lymphatic: No Cervical Adenopathy Extremities: No Edema, No Clubbing, Cyanosis Skin: No Rash or Ulcers, No Nodules or Sclerosis Neurological: Alert and Oriented x 3, NL Muscle Strength and Tone Result Diagrams: 04/27/19 05:50 04/27/19 05:50 Additional Lab and Data: Lab Results 04/25/19 04/25/19 04/25/19 Range/Units 15:01 15:01 15:01 WBC 24.5 H (3.5-10.8) 10^3/uL RBC 5.55 H (4.18-5.48) 10^6 /uL Hgb 16.5 (14.0-18.0) g/dL Hct 49 (42-52) % MCV 88 (80-94) fL MCH 30 (27-31) pg MCHC 34 (31-36) g/dL RDW 16 H (10-15) % Plt Count 507 H (150-450) 10^3/uL MPV 8.2 (7.4-10.4) fL Neut % (Auto) 90.3 % Lymph % (Auto) 2.9 % [place] % (Auto) 5.1 % Eos % (Auto) 1.2 % Baso % (Auto) 0.5 % Absolute Neuts (auto) 22.1 H (1.5-7.7) 10^3/ul Absolute Lymphs (auto) 0.7 L (1.0-4.8) 10^3/ul Absolute Monos (auto) 1.3 H (0-0.8) 10^3/ul Absolute Eos (auto) 0.3 (0-0.6) 10^3/ul Absolute Basos (auto) 0.1 (0-0.2) 10^3/ul Absolute Nucleated RBC 0.0 10^3/ul Nucleated RBC % 0.1 INR (Anticoag Therapy) 1.14 H (0.82-1.09) APTT Pending Sodium 137 (135-145) mmol/L Potassium 4.7 (3.5-5.0) mmol/L Chloride 110 (101-111) mmol/L Carbon Dioxide 21 L (22-32) mmol/L Anion Gap 6 (2-11) mmol/L BUN 28 H (6-24) mg/dL Creatinine 1.22 H (0.67-1.17) mg/dL Est GFR ( Amer) 71.5 (>60) Est GFR (Non-Af Amer) 59.1 (>60) BUN/Creatinine Ratio 23.0 H (8-20) Glucose 110 H (70-100) mg/dL Calcium 9.1 (8.6-10.3) mg/dL Total Bilirubin 0.50 (0.2-1.0) mg/dL AST 20 (13-39) U/L ALT 19 (7-52) U/L Alkaline Phosphatase 69 (34-104) U/L C-Reactive Protein 7.10 (<8.01) mg/L Total Protein 6.9 (6.4-8.9) g/dL Albumin 4.0 (3.2-5.2) g/dL Globulin 2.9 (2-4) g/dL Albumin/Globulin Ratio 1.4 (1-3) Assess/Plan/Problems-Billing Assessment: 68 yo M with h/o prostate cancer s/p traumatic R hip fx - Patient Problems (1) Closed right hip fracture Comment: for hip replacement today Clearance documented in consult (2) Leukocytosis Comment: likely related to stress response, improving (3) Elevated serum creatinine Comment: suspect pt's baseline creat is 1.2 (4) DVT prophylaxis Comment: HSQ Status and Disposition: medicine consult, will follow
[2019-04-27] MEDS ORDERED: Dexamethasone TAB* 4 MG PO ONE (13:46)
[2019-04-27] MEDS ORDERED: Buffered Lidocaine 1% SYRIN* 1 ML/SYRINGE INTRADERM ONE (13:46)
[2019-04-27] MEDS ORDERED: Ondansetron ODT TAB* 4 MG PO ONE (13:46)
[2019-04-27] MEDS ORDERED: Famotidine IV* 10 MG/ML 2 ML (20 mg) IV ONE (13:46)
[2019-04-27] MEDS ORDERED: Dexamethasone IV* 4 MG/ML 1 ML (4 MG) ONE ×2 (14:46→17:59)
[2019-04-27] MEDS ORDERED: Famotidine IV* 10 MG/ML 2 ML (20 mg) ONE (14:46)
[2019-04-27] MEDS ORDERED: Ondansetron ODT TAB* 4 MG ONE (14:46)
[2019-04-27] MEDS ORDERED: Dexamethasone TAB* 4 MG ONE (14:59)
[2019-04-27] MEDS ORDERED: ceFAZolin 2 GM in NS PREMIX(*) 2 GM/100 ML BAG IVPB ONE (15:47)
[2019-04-27] MEDS ORDERED: Bisacodyl SUPP* 10 MG SUPP PR PRN (16:00)
[2019-04-27] MEDS ORDERED: Midazolam* 1 MG/ML 5 ML VIAL (5 MG) ONE (16:35)
[2019-04-27] MEDS ORDERED: fentaNYL* 50 MCG/ML 2 ML VIAL (100 MCG VIAL) ONE (16:35)
[2019-04-27] MEDS ORDERED: KETAMINE HCL* 50 MG/ML 10 ML VIAL ONE (17:35)
[2019-04-27] MEDS ORDERED: Propofol* 10 MG/ML 20 ML BTL ONE (17:59)
[2019-04-27] MEDS ORDERED: Ondansetron INJ* 2 MG/ML VIAL ONE (17:59)
[2019-04-27] MEDS ORDERED: Ketorolac INJ* 30 MG/ML 1 ML VIAL ONE (17:59)
[2019-04-27] MEDS ORDERED: Lidocaine 2% PF * 5 ML VIAL ONE (18:00)
[2019-04-27] MEDS ORDERED: Phenylephrine 40 MCG/ML SYRINGE ONE (18:00)
[2019-04-27] MEDS ORDERED: EPHEDrine (Pressors)* 50 MG/ML VIAL ONE (18:35)
[2019-04-27] MEDS ORDERED: Midazolam* 1 MG/ML 2 ML VIAL (2 MG) ONE (19:25)
[2019-04-27] MEDS ORDERED: oxyCODONE/Acetamin 5/325 MG* TAB PO PRN (19:55)
[2019-04-27] MEDS ORDERED: Levalbuterol 0.63MG/3ML NEB* UNIT OF USE INH PRN (19:55)
[2019-04-27] MEDS ORDERED: HYDROmorphone INJ1* 1 MG/ML SYRINGE IV PRN (19:55)
[2019-04-27] MEDS ORDERED: Naloxone* 0.4 MG/ML 1 ML VIAL IV PRN (19:55)
[2019-04-27] MEDS ORDERED: Levalbuterol 0.63MG/3ML NEB* UNIT OF USE INH ONE (20:01)
--- NOTE | 2019-04-27 20:21 | OP ---
Operative Report - Blank - Operative Report Date of Operation: 04/27/19 Note: HUSSAIN ARTEAGA 1950 Date Of Surgery: 04/27/19 Yadira Chapa MD [employer] Burner: Gareth SIMS did help throughout the procedure with preparation of the hip, wound retraction, manipulation of the hip, and wound closure. Anesthesiologist: Arnie King MD Anesthesia Type: Spinal Preoperative Diagnosis: Right Displaced Comminuted Femoral Neck Fracture Postoperative Diagnosis: As above Procedure Performed: Right Total Hip Arthroplasty Complications: None Specimen: Femoral head and acetabular reamings sent to pathology. Hardware used: This is uncemented [place] total hip arthroplasty hardware for the femur a size 6 accolade II with 132 neck angle femoral component, for the acetabulum a size 56F trident II tritanium cluster hole shell, one 15 mm screw, for the insert a size 40F trident X3 polyethylene insert, and for the femoral head a size 40 + 0 ceramic biolox V40 femoral head. Brief history/Indication: HUSSAIN ARTEAGA was admitted to [facility] on 04/25/19 after a fall with a displaced femoral neck fracture. After being given different options he chose to proceed with total hip arthroplasty due to his age, activity and baseline arthritis on xray. Informed consent was obtained from the patient. He understood the risks of surgery included but were not limited to : bleeding, infection, damage to nearby structures, intraoperative fracture, nerve palsy, failure of the hardware, early loosening, stiffness or loss of motion, dislocation, leg length discrepancy, anesthesia complications, stroke, heart attack, blood clot and . He wished to proceed. Intra-Operative findings: Intraoperatively the patient was noted to have severe loss of cartilage of the acetabulum and femoral head. Description of the Procedure: HUSSAIN ARTEAGA was identified in the preanesthesia unit. His right hip was marked as the correct operative side. Informed consent was signed and placed in the chart. The patient was taken to the operating room and placed under anesthesia without complication. A ace catheter was placed. The patient was placed on the peg board with all bony prominences well padded. The right lower extremity was prepped and draped in the usual sterile fashion. Preoperative time -out was made to correctly identify the patient, side and site. Appropriate intraoperative antibiotics were given within one hour of incision. A standard posterior incision was made and carried sharply down to the lateral fascia. A new 10 blade was used to make an incision in the fascia in line with the skin incision. A charnley retractor was placed. The piriformis and conjoined tendons were identified and elevated off the posterolateral femur using electrocautery. These were tagged with number 5 Ethibond. Next electrocautery was used to make a posterolateral capsular flap and this was tagged with number 5 Ethibonds. The hip was carefully dislocated. The proximal femur was presented and a cleanup cut was made with an oscillating saw. The femoral head was carefully removed. The femur was retracted anteriorly and the acetabular retractors were placed. Long-handled knife was used to sharply remove any remaining labrum from the acetabular rim. The acetabulum was sequentially reamed up to a size 56. A bleeding subchondral bone bed was obtained. A trial liner was placed and had excellent fit and stability. A 56 F cup with a 15mm screw was placed and had excellent stability with appropriate anteversion and abduction angle. A size 40F polyethylene liner was impacted into the acetabular shell. The liner was checked for stability and was stable. Next attention was turned to preparation of the femoral canal. A canal finder was used to enter the proximal femur. The femoral canal was sequentially broached up to a size 6 femoral broach trial. A trial neck and 40 + 0 trial femoral head was chosen. Lesser trochanter to center of the femoral head measurement was satisfactory. The hip was reduced and taken through a range of motion. The hip was stable in all positions with good soft tissue tension and appropriate leg lengths. The hip was dislocated and all trials were removed. The final implant chosen was a accolade II size 6. This stem was impacted into the femoral canal without difficulty. The stem was stable with appropriate anteversion. The femoral head chosen was a 40 + 0 ceramic head. The head was impacted onto the femoral neck without difficulty. The final lesser trochanter to center of the femoral head measurement was satisfactory. The hip was reduced and taken through a range of motion. The hip was stable in all positions with good soft tissue tension and appropriate leg lengths. The hip was copiously irrigated with sterile saline. The previously tagged capsule and tendons were repaired to the posterolateral femur through two trochanteric drill holes. The lateral fascia layer was closed using number 1 vicryls. The rest of the incision was closed in a layered fashion using 0 and 2-0 vicryls. The skin was closed using 3-0 monocryl suture and Dermabond. Sterile adaptic, 4x4s and paper tape was used to cover the incision. The patients anesthesia was reversed without difficulty. He was taken to the PACU in stable condition. Intended weight-bearing will be as tolerated with posterior hip precautions.
[2019-04-27] MEDS: Nicotine Patch Removal NOTE PATCH OFF SCH (21:37)
[2019-04-27] MEDS: Lactated Ringers 1000 ML Bag* 1,000 ML IV SCH (21:47)
[2019-04-28] MEDS: oxyCODONE TAB* 5 MG TAB PO PRN ×4 (01:46→20:45)
[2019-04-28] MEDS: ceFAZolin 1 GM* X 3 DOSES POST-OP Q8H (AddVan) IVPB SCH ×6 (01:47→16:27)
[2019-04-28 04:25] LABS: Hematocrit 41 % (42-52); Hemoglobin 13.9 g/dL (14.0-18.0); Mean Corpuscular HGB Conc 34 g/dL (31-36); Mean Corpuscular Hemoglobin 30 pg (27-31); Mean Corpuscular Volume 88 fL (80-94); Mean Platelet Volume 8.4 fL (7.4-10.4); Platelet Count 529 10^3/uL (150-450); Red Cell Distribution Width 15 % (10-15); White Blood Count 28.9 10^3/uL (3.5-10.8)
[2019-04-28 04:35] LABS: Calcium 8.3 mg/dL (8.6-10.3); Potassium 4.5 mmol/L (3.5-5.0)
[2019-04-28 04:40] LABS: BUN/Creatinine Ratio 23.7 (8-20); EGFR African American 77.3 (>60); EGFR Non-African American 63.9 (>60)
[2019-04-28 04:48] LABS: ABS Basophils 0.1 10^3/ul (0-0.2); ABS Lymphocytes 0.6 10^3/ul (1.0-4.8); ABS Monocytes 0.4 10^3/ul (0-0.8); ABS Neutrophils 27.7 10^3/ul (1.5-7.7); Eosinophil % 0.2 %; Lymphocyte % 2.1 %
[2019-04-28] MEDS: Acetaminophen TAB* 325 MG PO SCH ×3 (05:22→20:53)
[2019-04-28] MEDS: Lactated Ringers 1000 ML Bag* 1,000 ML IV SCH (06:08)
[2019-04-28] MEDS: Magnesium Hydroxide LIQ* 30 ML UDC PO SCH ×2 (08:52→20:54)
[2019-04-28] MEDS: Docusate CAP* 100 MG PO SCH ×2 (08:52→20:54)
[2019-04-28] MEDS: Vitamin THERAPEUTIC TAB PO SCH (08:53)
--- NOTE | 2019-04-28 11:08 | PN ---
Progress Note - Progress Note Date of Service: 04/28/19 SOAP: Subjective: [Pt was seen sitting up in the chair. He is doing well. Has been able to walk 150 ft and to go up and down stairs this morning with PT. He states that he is interested in possible rehab. He denies any chest pain, SOB, nausea or vomiting. ] Objective: [General: Pt is alert and oriented x 3. NAD. Appropriate mood, affect, dress and hygiene. MSK, RLE: Right hip dressing is c/d/i. NVI distally. calfs soft and non tender. NVI distally] Vital Signs Temp 98.4 F 04/28/19 08:20 Pulse 85 04/28/19 08:20 Resp 16 04/28/19 09:16 BP 108/61 04/28/19 08:20 Pulse Ox 92 04/28/19 08:20 Intake & Output 04/27/19 04/28/19 04/28/19 18:59 06:59 18:59 Intake Total 1958 Output Total 825 755 Balance -825 1203 Intake: IV Fluids 980 LR 980 IVPB 58 ABX - CEFAZOLIN 58 Oral 920 Output: Urine 825 Singh 755 Other: Estimated Void Small Date of Last Bowel Movement # Bowel Movements 1 Estimated Stool Amount Large # Voids 1 Assessment: [S/P RTHA after femoral neck fracture. ] Plan: [Pt is doing well with PT and will continue Pts pain is well controlled. We discussed that given how well he is doing with PT that rehab may not be the best option at this point. We discussed going home tomorrow and starting outpatient PT. We also discussed the use of stool softeners and laxatives for constipation. The pts girlfriend will go to the office today to pickle processor a handy cap permit sheet. DC tomorrow. ]
--- NOTE | 2019-04-28 13:49 | PN ---
Subjective Date of Service: 04/28/19 Interval History: Pt feels well. the post op hip is "sore". Objective Active Medications: Acetaminophen (Tylenol Tab*) 975 mg PO Q8HR [facility] Last Admin: 04/28/19 05:22 Dose: 975 mg Apixaban (Eliquis*) 2.5 mg PO BID [facility] Bisacodyl (Dulcolax Supp*) 10 mg [place] DAILY PRN PRN Reason: CONSTIPATION Cyclobenzaprine HCl (Flexeril Tab*) 10 mg PO Q6H PRN PRN Reason: SPASMS Diphenhydramine HCl (Benadryl Iv*) 25 mg IV Q6H PRN PRN Reason: PRURITIS Diphenhydramine HCl (Benadryl Po*) 25 mg PO Q6H PRN PRN Reason: PRURITIS Docusate Sodium (Colace Cap*) 100 mg PO BID [facility] Last Admin: 04/28/19 08:52 Dose: 100 mg Lactated Ringer's (Lactated Ringers 1000 Ml Bag*) 1,000 mls @ 125 mls/hr IV PER RATE [facility] Last Admin: 04/28/19 06:08 Dose: 125 mls/hr Cefazolin Sodium 1 gm/ Sodium (Chloride) 50 mls @ 200 mls/hr IVPB Q8H [facility] Stop: 04/28/19 17:44 Last Admin: 04/28/19 08:51 Dose: 200 mls/hr Lactulose (Lactulose*) 30 ml PO BID PRN PRN Reason: CONSTIPATION Magnesium Hydroxide (Milk Of Magnesia Liq*) 30 ml PO BID [facility] Last Admin: 04/28/19 08:52 Dose: 30 ml Magnesium Hydroxide (Milk Of Magnesia Liq*) 30 ml PO Q6H PRN PRN Reason: CONSTIPATION Morphine Sulfate (Morphine Inj (Syringe))*) 2 mg IV Q4H PRN PRN Reason: Pain - Unrelieved Multivitamins (Theragran Tab*) 1 tab PO DAILY [facility] Last Admin: 04/28/19 08:53 Dose: 1 tab Nicotine (Nicotine Patch 7 Mg/24 Hr*) 1 patch TRANSDERM DAILY PRN PRN Reason: CRAVINGS Ondansetron HCl (Zofran Inj*) 4 mg IV Q6H PRN PRN Reason: NAUSEA Ondansetron HCl (Zofran Odt Tab*) 4 mg PO Q6H PRN PRN Reason: NAUSEA Oxycodone HCl (Roxycodone Tab*) 5 mg PO Q4H PRN PRN Reason: Pain - Breakthrough Last Admin: 04/28/19 08:53 Dose: 5 mg Pharmacy Profile Note (Nicotine Patch Removal Note*) 1 note PATCH OFF 2100 BOOM Last Admin: 04/27/19 21:37 Dose: Not Given Tramadol HCl (Ultram*) 50 mg PO Q6H PRN PRN Reason: PAIN - MODERATE Vital Signs - 8 hr 04/28/19 04/28/19 04/28/19 08:20 08:53 09:16 Temperature 98.4 F Pulse Rate 85 Respiratory 16 16 16 Rate Blood Pressure 108/61 (mmHg) O2 Sat by Pulse 92 Oximetry 04/28/19 04/28/19 11:10 12:05 Temperature 97.8 F Pulse Rate 85 Respiratory 16 18 Rate Blood Pressure 108/55 (mmHg) O2 Sat by Pulse 92 Oximetry Oxygen Devices in Use Now: Nasal Cannula Appearance: 68 yo M in nAD, AAOx3 Eyes: No Scleral Icterus, PERRLA Ears/Nose/Mouth/Throat: NL Teeth, Lips, Gums, Mucous Membranes Moist Neck: NL Appearance and Movements; NL JVP, Trachea Midline Respiratory: Symmetrical Chest Expansion and Respiratory Effort, Clear to Auscultation Cardiovascular: NL Sounds; No Murmurs; No JVD, RRR Abdominal: NL Sounds; No Tenderness; No Distention Lymphatic: No Cervical Adenopathy Extremities: No Clubbing, Cyanosis, - - mild r post op hip edema Skin: No Nodules or Sclerosis, - - R thigh post op wound not inspected Neurological: Alert and Oriented x 3, NL Muscle Strength and Tone Result Diagrams: 04/28/19 04:16 04/28/19 04:16 Additional Lab and Data: Lab Results 04/25/19 04/25/19 04/25/19 Range/Units 15:01 15:01 15:01 WBC 24.5 H (3.5-10.8) 10^3/uL RBC 5.55 H (4.18-5.48) 10^6 /uL Hgb 16.5 (14.0-18.0) g/dL Hct 49 (42-52) % MCV 88 (80-94) fL MCH 30 (27-31) pg MCHC 34 (31-36) g/dL RDW 16 H (10-15) % Plt Count 507 H (150-450) 10^3/uL MPV 8.2 (7.4-10.4) fL Neut % (Auto) 90.3 % Lymph % (Auto) 2.9 % Luna % (Auto) 5.1 % Eos % (Auto) 1.2 % Baso % (Auto) 0.5 % Absolute Neuts (auto) 22.1 H (1.5-7.7) 10^3/ul Absolute Lymphs (auto) 0.7 L (1.0-4.8) 10^3/ul Absolute Monos (auto) 1.3 H (0-0.8) 10^3/ul Absolute Eos (auto) 0.3 (0-0.6) 10^3/ul Absolute Basos (auto) 0.1 (0-0.2) 10^3/ul Absolute Nucleated RBC 0.0 10^3/ul Nucleated RBC % 0.1 INR (Anticoag Therapy) 1.14 H (0.82-1.09) APTT Pending Sodium 137 (135-145) mmol/L Potassium 4.7 (3.5-5.0) mmol/L Chloride 110 (101-111) mmol/L Carbon Dioxide 21 L (22-32) mmol/L Anion Gap 6 (2-11) mmol/L BUN 28 H (6-24) mg/dL Creatinine 1.22 H (0.67-1.17) mg/dL Est GFR ( Amer) 71.5 (>60) Est GFR (Non-Af Amer) 59.1 (>60) BUN/Creatinine Ratio 23.0 H (8-20) Glucose 110 H (70-100) mg/dL Calcium 9.1 (8.6-10.3) mg/dL Total Bilirubin 0.50 (0.2-1.0) mg/dL AST 20 (13-39) U/L ALT 19 (7-52) U/L Alkaline Phosphatase 69 (34-104) U/L C-Reactive Protein 7.10 (<8.01) mg/L Total Protein 6.9 (6.4-8.9) g/dL Albumin 4.0 (3.2-5.2) g/dL Globulin 2.9 (2-4) g/dL Albumin/Globulin Ratio 1.4 (1-3) Assess/Plan/Problems-Billing Assessment: 68 yo M with h/o prostate cancer s/p traumatic R hip fx - Patient Problems (1) Closed right hip fracture Comment: s/p hip replacement 04/27/19 (2) Leukocytosis Comment: likely related to stress response, but continues to be even more elevated after surgery. will get UA, but pt's CRP was low at admission- infection less likely. Advised pt to see a caterers helper once he is back home in [place] (3) Elevated serum creatinine Comment: suspect pt's baseline creat is 1.2 (4) DVT prophylaxis Comment: HSQ Status and Disposition: medicine consult, will sign off. Please call if needed
[2019-04-28 15:41] LABS: Urine Appearance Clear; Urine Bilirubin Negative (Negative); Urine Blood Negative (Negative); Urine Color Yellow; Urine Glucose Negative (Negative); Urine Ketones Negative (Negative); Urine Nitrite Negative (Negative); Urine Protein Negative (Negative); Urine Urobilinogen Negative (Negative)
[2019-04-28] MEDS: Nicotine Patch Removal NOTE PATCH OFF SCH (20:51)
[2019-04-28] MEDS: Apixaban* 2.5 MG TAB PO SCH (20:54)
[2019-04-29] MEDS: oxyCODONE TAB* 5 MG TAB PO PRN ×3 (04:04→13:40)
[2019-04-29 04:48] LABS: ABS Basophils 0.1 10^3/ul (0-0.2); ABS Eosinophils 0.2 10^3/ul (0-0.6); ABS Lymphocytes 1.3 10^3/ul (1.0-4.8); ABS Monocytes 1.5 10^3/ul (0-0.8); ABS Neutrophils 15.2 10^3/ul (1.5-7.7); Eosinophil % 1.1 %; Hematocrit 37 % (42-52); Hemoglobin 12.3 g/dL (14.0-18.0); Lymphocyte % 7.2 %; Mean Corpuscular HGB Conc 33 g/dL (31-36); Mean Corpuscular Hemoglobin 29 pg (27-31); Mean Corpuscular Volume 88 fL (80-94); Mean Platelet Volume 8.1 fL (7.4-10.4); Platelet Count 535 10^3/uL (150-450); Red Cell Distribution Width 15 % (10-15); White Blood Count 18.4 10^3/uL (3.5-10.8)
[2019-04-29] MEDS: Acetaminophen TAB* 325 MG PO SCH ×2 (05:33→13:40)
[2019-04-29] MEDS: Magnesium Hydroxide LIQ* 30 ML UDC PO SCH (08:37)
[2019-04-29] MEDS: Vitamin THERAPEUTIC TAB PO SCH (08:37)
[2019-04-29] MEDS: Apixaban* 2.5 MG TAB PO SCH (08:37)
[2019-04-29] MEDS: Docusate CAP* 100 MG PO SCH (08:37)
[2019-04-29 11:14] VITALS: BP 104/50
--- NOTE | 2019-04-29 11:32 | PN ---
Progress Note - Progress Note Date of Service: 04/29/19 SOAP: Subjective: [Patient seen at bedside. Feeling well. Ready for discharge home. States he was OOB and walking down [place] this morning with PT. He denies f/c, CP, SOB, n/v. Pain controlled on current medications. ] Objective: [General: WD, WN, 68 M in NAD. Able to get out of bed and stand with walker. RLU: Dressing changed today. Incision C/D/I with no erythema or signs of infection. Nontender and soft thigh. Knee and ankle f/e without pain. Calf soft and nontender with no palpable cords. NVI distally. ] Assessment: [POD#3 s/p right total hip replacement] Plan: [Pt met PT goals, pain well controlled. Ready for D/C today. Eliquis BID x 30 days for DVT ppx Percocet for pain management PT outpatient Vital Signs Temp Pulse Resp BP Pulse Ox 98.3 F 83 16 104/50 93 04/29/19 11:14 04/29/19 11:14 04/29/19 11:14 04/29/19 11:14 04/29/19 11:14 Laboratory Last Values WBC 18.4 10^3/uL (3.5-10.8) H 04/29/19 04:33 RBC 4.20 10^6 /uL (4.18-5.48) 04/29/19 04:33 Hgb 12.3 g/dL (14.0-18.0) L 04/29/19 04:33 Hct 37 % (42-52) L 04/29/19 04:33 MCV 88 fL (80-94) 04/29/19 04:33 MCH 29 pg (27-31) 04/29/19 04:33 MCHC 33 g/dL (31-36) 04/29/19 04:33 RDW 15 % (10-15) 04/29/19 04:33 Plt Count 535 10^3/uL (150-450) H 04/29/19 04:33 MPV 8.1 fL (7.4-10.4) 04/29/19 04:33 Neut % (Auto) 82.6 % 04/29/19 04:33 Lymph % (Auto) 7.2 % 04/29/19 04:33 Sharp % (Auto) 8.4 % 04/29/19 04:33 Eos % (Auto) 1.1 % 04/29/19 04:33 Baso % (Auto) 0.7 % 04/29/19 04:33 Absolute Neuts (auto) 15.2 10^3/ul (1.5-7.7) H 04/29/19 04:33 Absolute Lymphs (auto) 1.3 10^3/ul (1.0-4.8) 04/29/19 04:33 Absolute Monos (auto) 1.5 10^3/ul (0-0.8) H 04/29/19 04:33 Absolute Eos (auto) 0.2 10^3/ul (0-0.6) 04/29/19 04:33 Absolute Basos (auto) 0.1 10^3/ul (0-0.2) 04/29/19 04:33 Absolute Nucleated RBC 0.0 10^3/ul 04/29/19 04:33 Nucleated RBC % 0.0 04/29/19 04:33 INR (Anticoag Therapy) 1.09 (0.82-1.09) 04/27/19 05:50 APTT 37.7 seconds (26.0-38.0) 04/26/19 09:17 Sodium 135 mmol/L (135-145) 04/28/19 04:16 Potassium 4.5 mmol/L (3.5-5.0) 04/28/19 04:16 Chloride 104 mmol/L (101-111) 04/28/19 04:16 Carbon Dioxide 25 mmol/L (22-32) 04/28/19 04:16 Anion Gap 6 mmol/L (2-11) 04/28/19 04:16 BUN 27 mg/dL (6-24) H 04/28/19 04:16 Creatinine 1.14 mg/dL (0.67-1.17) 04/28/19 04:16 Est GFR ( Amer) 77.3 (>60) 04/28/19 04:16 Est GFR (Non-Af Amer) 63.9 (>60) 04/28/19 04:16 BUN/Creatinine Ratio 23.7 (8-20) H 04/28/19 04:16 Glucose 265 mg/dL (70-100) H 04/28/19 04:16 Calcium 8.3 mg/dL (8.6-10.3) L 04/28/19 04:16 Total Bilirubin 0.50 mg/dL (0.2-1.0) 04/25/19 15:01 AST 20 U/L (13-39) 04/25/19 15:01 ALT 19 U/L (7-52) 04/25/19 15:01 Alkaline Phosphatase 69 U/L (34-104) 04/25/19 15:01 C-Reactive Protein 7.10 mg/L (<8.01) 04/25/19 15:01 Total Protein 6.9 g/dL (6.4-8.9) 04/25/19 15:01 Albumin 4.0 g/dL (3.2-5.2) 04/25/19 15:01 Globulin 2.9 g/dL (2-4) 04/25/19 15: Albumin/Globulin Ratio 1.4 (1-3) 04/25/19 15: Urine Color Yellow 04/28/19 15: Urine Appearance Clear 04/28/19 15:21 Urine pH 5.0 (5-9) 04/28/19 15:21 Ur Specific [place] 1.030 (1.010-1.030) 04/28/19 15:21 Urine Protein Negative (Negative) 04/28/19 15: Urine Ketones Negative (Negative) 04/28/19 15:21 Urine Blood Negative (Negative) 04/28/19 15:21 Urine Nitrate Negative (Negative) 04/28/19 15: Urine Bilirubin Negative (Negative) 04/28/19 15: Urine Urobilinogen Negative (Negative) 04/28/19 15:21 Ur Leukocyte Esterase Negative (Negative) 04/28/19 15:21 Urine Glucose Negative (Negative) 04/28/19 15: Blood Type A Positive 04/26/19 06:07 Antibody Screen Negative 04/26/19 06:07 ]
--- NOTE | 2019-04-29 11:48 | DS ---
Orthopedic Discharge Summary - Discharge Summary Date of Admission:04/25/19 Date of Discharge: 04/29/19 Date of Surgery: 04/27/19 Attending Orthopedic Provider: Dr. Chapa Pre-operative Diagnosis: Right hip fracture Operative Procedure: Right hip replacement Disposition of Patient: Home Condition of Patient: Stable History: HUSSAIN ARTEAGA is a 68 year old M severe right hip pain following a right hip fracture. Patient underwent a right total hip replacement on 04/27/19. Hospital Course: HUSSAIN was admitted to [facility] on 04/25/19. Patient underwent a right hip replacement without complication followed by a brief recovery in PACU and transfer to the Short Stay Surgical Unit in stable condition. Our hospitalist service, physical therapy and occupational therapy also participated in this patients care. Post-op day 1: patient was alert and in no acute distress. Dressing was clean, dry and intact. Operative extremity dorsiflexion and plantarflexion intact, sensation intact to light touch distally , DP2+. Post-op day two: dressing was changed, incision was clean, dry and intact. Patient was deemed to be medically and orthopedically stable for discharge. Physical therapy goals were met. Home Medications Medication Instructions Recorded Confirmed Type Ibuprofen 400 mg PO ONCE PRN 04/25/19 04/25/19 History Apixaban* [Eliquis*] 2.5 mg PO BID 30 Days #60 tab 04/29/19 Rx oxyCODONE TAB* [Roxycodone TAB 5 5 mg PO Q4H PRN #60 tab MDD 6 04/29/19 Rx mg*] Discharge Instructions following Orthopedic Surgery: Activity: * Weight Bearing as tolerated * Continue physical therapy and occupational therapy exercises as shown Hip replacements: Continue Hip Precautions- do not cross legs or bend greater than 90 degrees/squat Wound care: * OK to shower on post-op day 3, no bathing, swimming, or submerging wound. * Use gentle soap, pat dry. Cover with gauze, AMAYA wrap or tape. * Visiting home nurse to do wound checks. Call Orthopedic office for: * Increased drainage * Redness * Increased pain * Fever Go to ER with shortness of breath or chest pain. Diet: * Regular diet * Increase fluids and fiber to prevent constipation. * Continue to use stool softeners, call office if no bowel motion within 48 hours. Medications See Home Medication List in your packet for medications that you should take after discharge. DVT Prophylaxis: Eliquis Dosin.5 mg, 1 tab every 12 hours x 30 days Pain Control: Percocet Dosin/325 mg 1-2 tabs by mouth every 4-6 hours as needed for pain. Maximum of 10 tabs per day. Please note that Percocet contains Tylenol (acetaminophen). Maximum daily dose of Tylenol is 4000 mg from all sources. Antibiotics are required prior to any dental work. FOLLOW UP: Follow up with [[facility]] Within 10-14 days, call for appointment Please call our office with any questions or concerns ([phone])
== END 2019-04-29 14:42 | disposition home or self-care (01) | DRG 470 ==
LOC: ED 14:30 → SSU 16:00
PROVIDERS: ADMIT Orthopaedic Surgery; ATTEND Orthopaedic Surgery Adult Reconstructive Orthopaedic Surgery
PROC: 0SR904A Replacement of Right Hip Joint with Ceramic on Polyethylene Synthetic Substitute, Uncemented, Open Approach (ICD-10-PCS; principal; 2019-04-27 17:00)
DX: S72.011A Unspecified intracapsular fracture of right femur, initial encounter for closed fracture (principal); W18.39XA Other fall on same level, initial encounter; F17.210 Nicotine dependence, cigarettes, uncomplicated; D72.829 Elevated white blood cell count, unspecified; E86.0 Dehydration; R94.4 Abnormal results of kidney function studies; M16.11 Unilateral primary osteoarthritis, right hip; Z85.46 Personal history of malignant neoplasm of prostate; Z90.79 Acquired absence of other genital organ(s); Y92.89 Other specified places as the place of occurrence of the external cause; Z82.62 Family history of osteoporosis; Z72.89 Other problems related to lifestyle; Z23 Encounter for immunization; Z89.021 Acquired absence of right finger(s)
CPT/HCPCS: 36415; 71045; 72170; 80048; 80053; 81003; 82565; 84520; 85025; 85610; 85730; 86140; 86850; 86900; 86901; 88305; 88311; 90686; 90732; 93005; 96374; 99284; A9270-GY; C1713; C1776; G8978-GP-CK; G8979-GP-CI; G8987-GO-CJ; G8988-GO-CJ; G8989-GO-CJ; J0690; J1100; J1644; J1885; J2250; J2270; J2405; J2704; J3010; J8540